=== PATIENT | female | born 1970 ===

== ENCOUNTER 2017-06-08 09:56 | Inpatient (IN) ==
[2017-06-08] MEDS ORDERED: LORazepam 2 MG/1 ML VIAL IV ONE (11:08)
[2017-06-08 12:53] LABS: Basophils % 0.4 % (0.0-0.8); Eosinophils % 0.1 % (0.00-10.9); Hematocrit 36.7 VOL% (35.7-47.0); Hemoglobin 12.5 GM/DL (12.0-16.0); Immature Granulocytes % 0.6 %; Immature Granulocytes Absolute 0.04 #; Lymphocytes # 0.7 10*3/uL (1.4-4.0); Lymphocytes % 10.5 % (21.3-54.2); Mean Corpuscular HGB Conc 34.1 GM/DL (32-36); Mean Corpuscular Hemoglobin 33 PG (27-34); Mean Corpuscular Volume 96.6 FL (87-102); Mean Platelet Volume 10.5 FL (9.6-12.0); Monocytes # 0.3 10*3/uL (0.11-0.8); Monocytes % 4.4 % (1.7-12.7); Neutrophils # 5.7 10*3/uL (1.4-7.4); Platelet Count 179 T/CUMM (130-400); Red Cell Distribution Width 13.6 % (9.3-17.3); White Blood Count 6.8 T/CUMM (4-12)
[2017-06-08 13:15] LABS: Cholesterol 123 MG/DL (50-200); HDL Cholesterol 76 MG/DL (40-60); Risk Ratio 1.62; Triglycerides 54 MG/DL (2-150); Troponin I Only < 0.015 NG/ML (0.00-0.045); VLDL CHOLESTEROL 10.8 MG/DL
[2017-06-08] MEDS ORDERED: GLUCAGON 1 MG VIAL IM PRN ×2 (14:25)
[2017-06-08] MEDS ORDERED: DEXTROSE 50% 25 GM/50 ML VIAL IV PRN ×2 (14:25)
[2017-06-08] MEDS ORDERED: hydrALAZINE 20 MG/1 ML VIAL IV PRN (14:26)
[2017-06-08] MEDS ORDERED: INSULIN REGULAR 100 UNIT/ML SUBCUT SCH (16:30)
[2017-06-08] MEDS: amLODIPine 10 MG TABLET PO SCH (18:37)
[2017-06-08] MEDS: SEVELAMER CARBONATE 800 MG TABLET PO SCH (18:47)
[2017-06-08] MEDS ORDERED: traZODone 50 MG TABLET PO SCH (21:00)
[2017-06-09] MEDS ORDERED: LORazepam 2 MG/1 ML VIAL IV ONE (08:04)
[2017-06-09] MEDS: SEVELAMER CARBONATE 800 MG TABLET PO SCH ×3 (08:14→16:58)
[2017-06-09] MEDS: amLODIPine 10 MG TABLET PO SCH (08:15)
[2017-06-09] MEDS ORDERED: LOSARTAN 50 MG TABLET PO SCH (09:00)
[2017-06-09] MEDS ORDERED: METOPROLOL SUCCINATE XL 25 MG TABLET PO SCH (09:00)
[2017-06-09] MEDS ORDERED: ASPIRIN CHEW 81 MG TABLET PO SCH (09:00)
[2017-06-09 16:34] VITALS: BP 127/60
== END 2017-06-09 17:22 | disposition home or self-care (01) | DRG 91 ==
LOC: N.4E 11:47
PROVIDERS: ADMIT Hospitalist; ATTEND Hospitalist